=== PATIENT | female | born 1985 | race Caucasian/White ===

== ENCOUNTER 2016-12-03 12:53 | Emergency (ER) | payer OTHER ==
[2016-12-03 13:05] VITALS: BP 134/88
--- NOTE | 2016-12-03 13:40 | UC ---
Eye Complaint HPI - HPI Summary HPI Summary: HAD STYE THAT BEGAN ON 11/30/16 HAS NOW DEVELOPED LEFT EYE PRESEPTAL CELLULITIS ( DIAGNOSED BY OPTOMETRICS) WAS ABLE TO GET SCRIPT FOR OINTMET BUT UNABLE TO GET ORAL ANTIBIOTIC RX. - History of Current Complaint Chief Complaint: UCEye Stated Complaint: EYE COMPLAINT Time Seen by Provider: 12/03/16 13:13 Hx Obtained From: Patient Hx Last Menstrual Period: 4 months ago, has IUD Onset/Duration: Gradual Onset, Lasting Days, Still Present Timing: Days Severity Initially: Mild Severity Currently: Moderate Location of Injury: Eye Lid (lower), Eye Lid (upper) Character: Sharp Aggravating Factor(s): Nothing Alleviating Factor(s): Nothing Associated Signs And Symptoms: Positive: Swelling. Negative: Photophobia, Drainage (Clear), Drainage (Purulent), Vision Impairment Bilateral, Fever - Risk Factors Penetrating Injury Risk Factor: Negative Globe Rupture Risk Factors: Negative Acute Glaucoma Risk Factors: Negative Optic Artery Occlusion Risk Factors: Negative - Allergies/Home Medications Allergies/Adverse Reactions: Allergies Allergy/AdvReac Type Severity Reaction Status Date / Time Diphenhydramine Allergy Intermediate Anaphylatic Verified 12/03/16 13:06 [From Benadryl] Shock Home Medications: Home Medications Erythromycin OPHTH.OINT* [Ilotycin OPHTH.OINT*] 12/03/16 [History Confirmed ] PMH/Surg Hx/FS Hx/Imm Hx Previously Healthy: Yes - Surgical History Surgical History: Yes Surgery Procedure, Year, and Place: Tonsillectomy - Family History Known Family History: Positive: None - Social History Occupation: Employed Full-time Lives: With Family Alcohol Use: Rare Substance Use Type: None Smoking Status (MU): Never Smoked Tobacco Have You Smoked in the Last Year: No - Immunization History Most Recent Tetanus Shot: unknown Review of Systems Constitutional: Negative Skin: Negative Eyes: Drainage, Other - LEFT LID ERRETHEMA EDEMA ENT: Negative Respiratory: Negative Cardiovascular: Negative Gastrointestinal: Negative Genitourinary: Negative Motor: Negative Neurovascular: Negative Musculoskeletal: Negative Neurological: Negative Psychological: Negative All Other Systems Reviewed And Are Negative: Yes Physical Exam Triage Information Reviewed: Yes Appearance: Well-Appearing, No Pain Distress, Well-Nourished Vital Signs: Initial Vital Signs Temp 99.1 F 12/03/16 13:00 Pulse 81 12/03/16 13:00 Resp 18 12/03/16 13:00 BP 134/88 12/03/16 13:00 Pulse Ox 99 12/03/16 13:00 Vital Signs Reviewed: Yes Eyes: Positive: Other: - LEFT SUPERIOR LID ERRETHEMA EDEMA WARMTH ENT Exam: Normal ENT: Positive: Normal ENT inspection Dental Exam: Normal Neck exam: Normal Neck: Positive: Supple, Nontender, No Lymphadenopathy Respiratory Exam: Normal Respiratory: Positive: Chest non-tender, Lungs clear, Normal breath sounds, No respiratory distress Cardiovascular Exam: Normal Cardiovascular: Positive: RRR, No Murmur Abdominal Exam: Normal Musculoskeletal Exam: Normal Neurological Exam: Normal Psychological Exam: Normal Skin Exam: Normal Eye Complaint Course/Dx - Differential Dx/Diagnosis Differential Diagnosis/HQI/PQRI: Periorbital Cellulitis, Orbital Cellulitis Provider Diagnoses: LEFT PRESEPTAL CELLULITIS; ;LEFT SUPERIOR EYELID STYE Discharge - Discharge Plan Condition: Stable Disposition: HOME Prescriptions: Amoxicillin/Clavulanate TAB* [Augmentin TAB 875*] 875 mg PO BID #20 tab Patient Education Materials: Periorbital Cellulitis in Adults (ED) Referrals: [facility] [Outside] No Primary Care Phys,NOPCP [Primary Care Provider] -
== END 2016-12-03 13:45 | disposition home or self-care (01) ==
LOC: UCEAST 12:53
DX: L03.213 Periorbital cellulitis (principal)
CPT/HCPCS: 99212; G0463